=== PATIENT | male | born 1980 | race Caucasian/White ===

== ENCOUNTER 2021-06-11 17:09 | Observation (INO) ==
[2021-06-11] MEDS ORDERED: Nitroglycerin 0.4 MG TAB.SUBL SL PRN (17:27)
[2021-06-11] MEDS ORDERED: Aspirin 81 MG TAB.CHEW PO ONE (17:27)
[2021-06-11 18:03] LABS: Basophils # 0.1 K/mcL (0.0-0.2); Basophils % 0.3 %; Eosinophils # 0.1 K/mcL (0.0-0.6); Eosinophils % 0.6 %; Hematocrit 43.8 % (37.5-50.1); Hemoglobin 14.7 g/dL (12.9-16.9); Immature Granulocytes % 0.8 % (0-4); Lymphocytes # 2.6 K/mcL (0.6-4.6); Lymphocytes % 12.9 %; Mean Corpuscular HGB Conc 33.6 g/dL (31.6-35.5); Mean Corpuscular Hemoglobin 27.9 pg (28.0-33.3); Mean Corpuscular Volume 83.3 fL (83.0-100.0); Mean Platelet Volume 8.9 fL (9.4-12.4); Monocytes # 1.3 K/mcL (0.0-1.3); Monocytes % 6.5 %; Neutrophils # 15.6 K/mcL (1.6-8.9); Platelet Count 527 K/mcL (140-400); Red Blood Count 5.26 M/mcL (4.19-5.50); Red Cell Distribution Width 13.8 % (11.5-14.5); Segmented Neutrophils % 78.9 %; White Blood Count 19.7 K/mcL (4.3-11.1)
[2021-06-11 18:09] LABS: INR 1.2; Prothrombin Time 14.2 Seconds (9.4-12.1)
[2021-06-11 18:12] LABS: Activated Partial Thrombo Time 28.8 Seconds (26.0-36.0)
[2021-06-11 18:36] LABS: Calcium 9.5 mg/dL (8.6-10.3); Potassium 3.1 mEq/L (3.5-5.1); Troponin I 0.07 ng/mL (< 0.04)
[2021-06-11] MEDS ORDERED: *HR* Metoprolol 5 MG/5 ML VIAL IVP ONE (19:29)
[2021-06-11] MEDS ORDERED: Isovue-370 500 ML BOTTLE IVP ONE ×2 (19:29→21:42)
[2021-06-11] MEDS ORDERED: Acetaminophen 325 MG TABLET PO PRN (20:53)
[2021-06-11] MEDS ORDERED: Naloxone 0.4 MG/ML INJ IVP PRN (20:53)
[2021-06-11] MEDS ORDERED: Ondansetron ODT 4 MG TAB.RAPDIS SL PRN (20:53)
[2021-06-11] MEDS ORDERED: Melatonin 3 MG TABLET PO PRN (20:54)
[2021-06-11] MEDS ORDERED: Perflutren Lipid Microsphere 1.3 ML in 0.9 % Sodium Chloride 8.7 ML IVP PRN (20:54)
[2021-06-11] MEDS ORDERED: 0.9 % Sodium Chloride 1,000 ML IVC SCH (21:00)
[2021-06-11 21:50] LABS: Chol/HDL Ratio 6.3 (0-4.9)
[2021-06-11 22:05] LABS: Estimated Average Glucose 120 mg/dl; Hemoglobin A1C 5.8 %
[2021-06-11] MEDS: niCARdipine 20 MG/200 ML MLS IVC SCH (22:22)
[2021-06-12 00:09] LABS: Bilirubin,Urine Negative (Negative); Blood,Urine Small (Negative); Clarity,Urine Clear (Clear); Color,Urine Light-Yellow (Yellow); Glucose,Urine (UA) Normal (Normal); Hyaline Casts,Urine Few per lpf (None Seen); Ketones,Urine Negative (Negative); Leukocyte Esterase,Urine Negative (Negative); Mucus,Urine Few per lpf (None-Few); Nitrite,Urine Negative (Negative); Protein,Urine >=300 mg/dL (Neg-Trace); RBC,Urine 0-3 per hpf (0-3); Specific Gravity,Urine 1.024 (1.010-1.025); Squamous Epithelial Cell,Urine Few per hpf (None-Few); Urobilinogen,Urine Normal (Normal)
[2021-06-12 00:53] LABS: Creatinine,Urine 148 mg/dL; Sodium, Urine 63.7 mEq/L
[2021-06-12 00:55] LABS: Amphetamine Screen,Urine Negative ng/mL (Cutoff=1000); Barbiturate Screen,Urine Negative ng/mL (Cutoff=200); Benzodiazepines Screen,Urine Negative ng/mL (Cutoff=200); Cannabinoid Screen,Urine Positive ng/mL (Cutoff = 50); Cocaine Screen,Urine Negative ng/mL (Cutoff= 300); Opiate Screen,Urine Negative ng/mL (Cutoff=300); Phencyclidine Screen,Urine Negative ng/mL (Cutoff=25)
[2021-06-12] MEDS: niCARdipine 20 MG/200 ML MLS IVC SCH ×4 (00:58→04:04)
[2021-06-12 03:24] VITALS: PULSE 74; O2SAT 94
[2021-06-12] MEDS ORDERED: 0.9 % Sodium Chloride 2,000 ML ONE (03:30)
[2021-06-12 03:41] LABS: Adenovirus Not Detected (Not Detect); Bordetella Pertussis Not Detected (Not Detect); Chlamydophila pneumoniae Not Detected (Not Detect); Coronavirus 229E Not Detected (Not Detect); Coronavirus HKU1 Not Detected (Not Detect); Coronavirus NL63 Not Detected (Not Detect); Coronavirus OC43 Not Detected (Not Detect); Human Metapneumovirus Not Detected (Not Detect); Human Rhinovirus/Enterovirus Not Detected (Not Detect); Influenza A Subtype 2009 H1 Not Detected (Not Detect); Influenza B Not Detected (Not Detect); Mycoplasma pneumoniae Not Detected (Not Detect); Parainfluenza Virus 1 Not Detected (Not Detect); Parainfluenza Virus 2 Not Detected (Not Detect); Parainfluenza Virus 3 Not Detected (Not Detect); Parainfluenza Virus 4 Not Detected (Not Detect); Respiratory Syncytial Virus Not Detected (Not Detect); SARS-CoV-2 Not Detected (Not Detect)
[2021-06-12 03:43] VITALS: TEMP 98.7
[2021-06-12 04:06] VITALS: BP 113/72
[2021-06-12] MEDS ORDERED: *HR* Heparin 5,000 UNIT/ML VIAL SQ SCH (06:00)
[2021-06-12] MEDS ORDERED: Aspirin 81 MG TAB.CHEW PO SCH (09:00)
== END 2021-06-12 04:06 | disposition short-term general hospital (02) ==
LOC: 2NNU 17:09 → EMEROOARM 17:09 → 2NNU 22:10 → ICNU 06-12 02:20
PROVIDERS: ADMIT Student in an Organized Health Care Education/Training Program; ATTEND Student in an Organized Health Care Education/Training Program

== ENCOUNTER 2021-08-06 12:11 | Observation (INO) ==
[2021-08-06] MEDS ORDERED: Phenylephrine 500 MCG in 0.9 % Sodium Chloride 1 ML INTRACAVER PRN ×4 (12:47→17:12)
[2021-08-06 13:10] LABS: Basophils % 0.3 %; Eosinophils # 0.2 K/mcL (0.0-0.6); Eosinophils % 1.5 %; Hematocrit 27.9 % (37.5-50.1); Hemoglobin 8.4 g/dL (12.9-16.9); Immature Granulocytes % 1.3 % (0-4); Lymphocytes # 2.8 K/mcL (0.6-4.6); Lymphocytes % 21.8 %; Mean Corpuscular HGB Conc 30.1 g/dL (31.6-35.5); Mean Corpuscular Volume 89.7 fL (83.0-100.0); Mean Platelet Volume 9.3 fL (9.4-12.4); Monocytes # 0.8 K/mcL (0.0-1.3); Monocytes % 6.1 %; Neutrophils # 8.8 K/mcL (1.6-8.9); Platelet Count 304 K/mcL (140-400); Red Blood Count 3.11 M/mcL (4.19-5.50); Red Cell Distribution Width 16.9 % (11.5-14.5); White Blood Count 12.8 K/mcL (4.3-11.1)
[2021-08-06 14:02] LABS: BUN/Creatinine Ratio 21 (6-26); Blood Urea Nitrogen 31 mg/dL (6-20); Calcium 9.5 mg/dL (8.6-10.3); Carbon Dioxide 23 mEq/L (23-29); Chloride 102 mEq/L (98-107); Glucose 117 mg/dL (70-105); Osmolality,Calculated 288 (280-300); Sodium 135 mEq/L (136-145); eGFR For African Americans > 60 (> 60); eGFR For Non-African Americans 52 (> 60)
[2021-08-06] MEDS ORDERED: *HR* HYDROcodone/Acet 5/325 mg TABLET PO ONE (14:10)
[2021-08-06] MEDS ORDERED: Isovue-370 500 ML BOTTLE IVP ONE (14:15)
[2021-08-06] MEDS ORDERED: 0.9 % Sodium Chloride 1,000 ML IVC ONE (14:15)
[2021-08-06] MEDS ORDERED: Neosporin OINT 15 GM TUBE TP ONE (14:54)
[2021-08-06] MEDS ORDERED: Lidocaine 1% 20 ML MDV ONE (14:54)
[2021-08-06] MEDS ORDERED: *HR* Propofol 200 MG/20 ML VIAL IVP ONE (14:56)
[2021-08-06] MEDS ORDERED: *HR* FentaNYL (PF) 100 MCG/2 ML VIAL ONE (14:56)
[2021-08-06] MEDS ORDERED: *HR* Midazolam HCl 2 MG/2 ML VIAL ONE (14:56)
[2021-08-06] MEDS ORDERED: Ondansetron 4 MG/2 ML VIAL IVP PRN ×3 (15:33→17:12)
[2021-08-06] MEDS ORDERED: *HR* HYDROmorphone PF 0.5 MG/0.5 ML SYRINGE IVP PRN ×2 (15:33→17:12)
[2021-08-06] MEDS ORDERED: Naloxone 0.4 MG/ML INJ IVP PRN ×3 (16:53→17:12)
[2021-08-06] MEDS ORDERED: Acetaminophen 325 MG TABLET PO PRN ×2 (16:53→17:12)
[2021-08-06] MEDS ORDERED: *HR* Promethazine 25 MG/ML VIAL IM PRN (17:12)
[2021-08-06] MEDS ORDERED: *HR* Belladonna Alkaloids/Opium 30 MG RECTAL SUPPOSITORY RC PRN (17:12)
[2021-08-06] MEDS ORDERED: *HR* HYDROcodone/Acet 5/325 mg TABLET PO PRN (17:12)
[2021-08-06] MEDS ORDERED: 0.9 % Sodium Chloride 250 ML IVC SCH (19:00)
[2021-08-06 19:30] LABS: Hemoglobin 8.6 g/dL (12.9-16.9)
[2021-08-06 19:39] LABS: INR 1.1; Prothrombin Time 12.7 Seconds (9.4-12.1)
[2021-08-06 19:44] LABS: Heparin anti-factor XA UFH 0.28 IU/mL (0.30-0.70)
[2021-08-06] MEDS: 0.9 % Sodium Chloride 1,000 ML IVC SCH (20:00)
[2021-08-06] MEDS ORDERED: Apixaban 5 MG TABLET PO SCH (21:00)
[2021-08-06] MEDS: Melatonin 3 MG TABLET PO SCH (22:48)
[2021-08-06] MEDS: carvediloL 25 MG TABLET PO SCH (22:48)
[2021-08-06] MEDS: NIFEdipine XL (24 HR) 30 MG TAB.ER.24 PO SCH (22:48)
[2021-08-06] MEDS: Piperacillin/Tazobactam 3.375 GM in 0.9 % Sodium Chloride Mini Bag 100 ML IVPB SCH (22:50)
[2021-08-07 05:33] LABS: Basophils % 0.2 %; Hemoglobin 9.1 g/dL (12.9-16.9); Lymphocytes # 1.4 K/mcL (0.6-4.6); Lymphocytes % 13.2 %; Mean Corpuscular HGB Conc 31.4 g/dL (31.6-35.5); Mean Corpuscular Hemoglobin 27.5 pg (28.0-33.3); Mean Corpuscular Volume 87.6 fL (83.0-100.0); Mean Platelet Volume 8.8 fL (9.4-12.4); Monocytes # 0.5 K/mcL (0.0-1.3); Monocytes % 4.8 %; Neutrophils # 8.5 K/mcL (1.6-8.9); Platelet Count 239 K/mcL (140-400); Red Blood Count 3.31 M/mcL (4.19-5.50); Red Cell Distribution Width 16.1 % (11.5-14.5); Segmented Neutrophils % 80.8 %; White Blood Count 10.5 K/mcL (4.3-11.1)
[2021-08-07 05:42] LABS: INR 1.1; Prothrombin Time 12.6 Seconds (9.4-12.1)
[2021-08-07] MEDS ORDERED: Phenylephrine 500 MCG in 0.9 % Sodium Chloride 1 ML INTRACAVER PRN ×2 (05:43→08:03)
[2021-08-07 05:53] LABS: BUN/Creatinine Ratio 18 (6-26); Blood Urea Nitrogen 23 mg/dL (6-20); Calcium 9.3 mg/dL (8.6-10.3); Carbon Dioxide 23 mEq/L (23-29); Chloride 103 mEq/L (98-107); Glucose 134 mg/dL (70-105); Osmolality,Calculated 286 (280-300); Potassium 4.4 mEq/L (3.5-5.1); Sodium 135 mEq/L (136-145); eGFR For African Americans > 60 (> 60); eGFR For Non-African Americans > 60 (> 60)
[2021-08-07 06:14] LABS: Albumin 3.5 g/dL (3.5-5.7); Bilirubin,Direct 0.2 mg/dL (0.0-0.2); Bilirubin,Indirect 0.7 mg/dL (0.0-1.0); Bilirubin,Total 0.9 mg/dL (0.3-1.0); Globulin 3.6 g/dL (2.4-3.5); Total Protein 7.1 g/dL (6.4-8.9)
[2021-08-07 06:19] LABS: Folate 8.6 ng/mL (3.0-16.0)
[2021-08-07] MEDS: NIFEdipine XL (24 HR) 30 MG TAB.ER.24 PO SCH ×2 (09:14→11:07)
[2021-08-07] MEDS: hydroCHLOROthiazide 25 MG TABLET PO SCH (09:15)
[2021-08-07] MEDS: Furosemide 20 MG TABLET PO SCH (09:15)
[2021-08-07] MEDS: Piperacillin/Tazobactam 3.375 GM in 0.9 % Sodium Chloride Mini Bag 100 ML IVPB SCH ×2 (09:15→17:04)
[2021-08-07] MEDS: 0.9 % Sodium Chloride 1,000 ML IVC SCH ×2 (09:15→17:07)
[2021-08-07] MEDS: carvediloL 25 MG TABLET PO SCH ×2 (09:15→17:04)
[2021-08-07] MEDS ORDERED: Cyanocobalamin (B-12) 1,000 MCG/ML VIAL SQ ONE (12:11)
[2021-08-07] MEDS: Melatonin 3 MG TABLET PO SCH (21:11)
[2021-08-08 01:16] LABS: Basophils % 0.4 %; Eosinophils # 0.1 K/mcL (0.0-0.6); Eosinophils % 1.1 %; Hematocrit 28.4 % (37.5-50.1); Hemoglobin 8.9 g/dL (12.9-16.9); Immature Granulocytes % 1.3 % (0-4); Lymphocytes # 2.7 K/mcL (0.6-4.6); Mean Corpuscular HGB Conc 31.3 g/dL (31.6-35.5); Mean Corpuscular Hemoglobin 27.6 pg (28.0-33.3); Mean Corpuscular Volume 88.2 fL (83.0-100.0); Mean Platelet Volume 8.7 fL (9.4-12.4); Monocytes # 0.6 K/mcL (0.0-1.3); Monocytes % 6.5 %; Platelet Count 230 K/mcL (140-400); Red Blood Count 3.22 M/mcL (4.19-5.50); Red Cell Distribution Width 16.8 % (11.5-14.5); Segmented Neutrophils % 58.7 %; White Blood Count 8.5 K/mcL (4.3-11.1)
[2021-08-08 01:39] LABS: BUN/Creatinine Ratio 16 (6-26); Blood Urea Nitrogen 24 mg/dL (6-20); Calcium 8.9 mg/dL (8.6-10.3); Carbon Dioxide 24 mEq/L (23-29); Chloride 106 mEq/L (98-107); Glucose 108 mg/dL (70-105); Osmolality,Calculated 293 (280-300); Sodium 139 mEq/L (136-145); eGFR For African Americans > 60 (> 60); eGFR For Non-African Americans 54 (> 60)
[2021-08-08] MEDS: Piperacillin/Tazobactam 3.375 GM in 0.9 % Sodium Chloride Mini Bag 100 ML IVPB SCH ×2 (01:54→07:42)
[2021-08-08] MEDS: 0.9 % Sodium Chloride 1,000 ML IVC SCH (01:55)
[2021-08-08] MEDS: hydroCHLOROthiazide 25 MG TABLET PO SCH (07:42)
[2021-08-08] MEDS: carvediloL 25 MG TABLET PO SCH (07:43)
[2021-08-08] MEDS: NIFEdipine XL (24 HR) 30 MG TAB.ER.24 PO SCH (07:43)
[2021-08-08] MEDS: Furosemide 20 MG TABLET PO SCH (07:43)
[2021-08-08 08:56] VITALS: BP 120/71; PULSE 92; TEMP 98.4; O2SAT 98
== END 2021-08-08 10:05 | disposition home or self-care (01) ==
LOC: 3BNU 12:11 → EMEROOARM 12:11 → 3BNU 15:03 → EMEROOARM 15:13 → SUATTDRO 16:38
PROVIDERS: ADMIT Internal Medicine; ATTEND Pharmacist